=== PATIENT | female | born 1970 | race Hispanic/Latino ===

== ENCOUNTER 2021-01-23 09:16 | Emergency (ER) | payer SELFPAY ==
[2021-01-23 09:58] LABS: #Basophils 0.1 thou/uL (0.0-0.2); #Eosinphils 0.4 thou/uL (0.0-0.7); #Lymphocytes 1.9 thou/uL (1.20-3.40); #Monocytes 0.5 thou/uL (0.11-0.59); #Neutrophils 6.4 thou/uL (1.40-6.50); %Basophils 0.8 % (0.0-1.0); %Eosinophils 4.5 % (0.0-10.0); %Lymphocytes 20.1 % (21.0-51.0); %Monocytes 5.7 % (0.0-10.0); %Neutrophils 68.9 % (42.0-75.0); Hemoglobin 9.8 g/dL (12.0-16.0); Mean Corpuscular HGB CONC 31.9 g/dL (32.0-36.0); Mean Corpuscular Hemoglobin 26.7 pg (27.0-31.0); Mean Corpuscular Volume 83.7 fL (78.0-98.0); Mean Platelet Volume 10.5 fL (7.4-10.4); Platelet Count 215 thou/uL (130-400); RBC Distribution Width 13.8 % (11.5-14.5); Red Blood Cell (RBC) Count 3.68 mill/uL (4.20-5.40); White Blood Cell (WBC) Count 9.3 thou/uL (4.8-10.8)
[2021-01-23 10:12] LABS: PTT 32.5 sec (22.9-36.1)
[2021-01-23 10:18] LABS: ALT (SGPT) 17 U/L (8-55); AST (SGOT) 17 U/L (5-34); Albumin 3.9 g/dL (3.5-5.0); Alkaline Phosphatase 75 U/L (40-110); Anion Gap 15 mmol/L (10-20); BUN (Urea Nitrogen) 35 mg/dL (7.0-18.7); Bilirubin, Total 0.2 mg/dL (0.2-1.2); Calc. Creatinine Clearance 0 mL/min (70-130); Calcium 9.5 mg/dL (7.8-10.44); Carbon Dioxide 27 mmol/L (22-29); Chloride 104 mmol/L (98-107); Globulin 3.2 g/dL (2.4-3.5); Glucose 183 mg/dL (70-105); Potassium 4.7 mmol/L (3.5-5.1); Protein, Total 7.1 g/dL (6.0-8.3); Sodium 141 mmol/L (136-145)
== END 2021-01-23 15:50 | disposition home or self-care (01) ==
LOC: ERS 09:16
DX: H53.8 Other visual disturbances (principal); H54.62 Unqualified visual loss, left eye, normal vision right eye
CPT/HCPCS: 36415; 80053; 85025; 85610; 85730; 99283

== ENCOUNTER 2022-12-22 20:35 | Inpatient (IN) | payer SELFPAY ==
[2022-12-22 23:00] VITALS: BMI 34.0
[2022-12-22] MEDS ORDERED: Senokot S 8.6-50 MG TAB PO PRN (23:11)
[2022-12-22] MEDS ORDERED: Calcium Carbonate 500 MG ChewTAB PO PRN (23:11)
[2022-12-22] MEDS ORDERED: Acetaminophen 325 MG TAB PO PRN (23:11)
[2022-12-23] MEDS ORDERED: hydrALAZINE 20 MG/ML VIAL SLOW IVP SCH (00:15)
[2022-12-23 00:55] LABS: #Eosinphils 0.6 thou/uL (0.0-0.7); #Monocytes 0.8 thou/uL (0.11-0.59); #Neutrophils 7.5 thou/uL (1.40-6.50); %Basophils 0.4 % (0.0-1.0); %Lymphocytes 19.3 % (21.0-51.0); %Monocytes 7.5 % (0.0-10.0); %Neutrophils 67.4 % (42.0-75.0); Hematocrit 27.9 % (36.0-47.0); Hemoglobin 8.7 g/dL (12.0-16.0); Mean Corpuscular HGB CONC 31.2 g/dL (32.0-36.0); Mean Corpuscular Hemoglobin 26.2 pg (27.0-31.0); Mean Platelet Volume 12.4 fL (7.4-10.4); Platelet Count 210 10x3/uL (130-400); RBC Distribution Width 15.8 % (11.5-14.5); Red Blood Cell (RBC) Count 3.32 mill/uL (4.20-5.40); White Blood Cell (WBC) Count 11.2 10x3/uL (4.8-10.8)
[2022-12-23 01:21] LABS: ALT (SGPT) 21 U/L (8-55); AST (SGOT) 18 U/L (5-34); Albumin 3.5 g/dL (3.5-5.0); Alkaline Phosphatase 76 U/L (40-110); Anion Gap 13 mmol/L (10-20); BUN (Urea Nitrogen) 42 mg/dL (9.8-20.1); Bilirubin, Total 0.2 mg/dL (0.2-1.2); Calc. Creatinine Clearance 63 mL/min (70-130); Calcium 8.7 mg/dL (7.8-10.44); Carbon Dioxide 17 mmol/L (22-29); Chloride 114 mmol/L (98-107); Estimated GFR 44; Globulin 3.4 g/dL (2.4-3.5); Glucose 192 mg/dL (70-105); Protein, Total 6.9 g/dL (6.0-8.3); Sodium 139 mmol/L (136-145)
[2022-12-23] MEDS ORDERED: HumaLOG 300 UNITS/3 ML VIAL SC PRN (02:18)
[2022-12-23] MEDS ORDERED: Dextrose 50% Abboject 50 ML SYRINGE SLOW IVP PRN (02:18)
[2022-12-23] MEDS ORDERED: Glucagon 1 MG/ML KIT IM PRN (02:18)
[2022-12-23] MEDS ORDERED: Dextrose 5% in Water 1,000 ML IV PRN (02:18)
[2022-12-23] MEDS: HumaLOG 300 UNITS/3 ML VIAL SC PRN ×2 (05:44→12:24)
[2022-12-23] MEDS: Vancomycin 1.5 GRAM/300 ML BAG 1.5 GM in Premix Bag 1 BAG IVPB SCH (05:45)
[2022-12-23] MEDS: Gabapentin 300 MG CAP PO SCH (08:58)
[2022-12-23] MEDS: Famotidine 20 MG TAB PO SCH (08:58)
[2022-12-23] MEDS: Ferrous Sulfate 325 MG TAB PO SCH (08:58)
[2022-12-23] MEDS: Carvedilol 6.25 MG TAB PO SCH ×2 (08:58→20:21)
[2022-12-23] MEDS: Aspirin 81 mg Enteric Coated Tablet PO SCH (08:58)
[2022-12-23] MEDS: Lisinopril 20 MG TAB PO SCH (08:59)
[2022-12-23] MEDS: Insulin Glargine 30 UNITS/0.3 ML VIAL SC SCH ×2 (08:59→20:21)
[2022-12-23] MEDS: Loratadine 10 MG TAB PO SCH (08:59)
[2022-12-23] MEDS: HYDROcodone/Acetaminophen 10/325 mg Tablet PO PRN ×2 (08:59→13:19)
[2022-12-23] MEDS: metFORMIN 500 MG TAB PO SCH ×2 (08:59→20:21)
[2022-12-23] MEDS ORDERED: Furosemide 40 MG TAB PO SCH (09:00)
[2022-12-23] MEDS ORDERED: Labetalol HCl 100 MG/20 ML VIAL SLOW IVP PRN (12:45)
[2022-12-23] MEDS: Ondansetron ODT 4 MG TAB PO PRN (13:19)
[2022-12-23] MEDS ORDERED: Morphine 4 MG/ML VIAL SLOW IVP PRN (14:06)
[2022-12-23] MEDS ORDERED: Promethazine HCl 25 MG in Sodium Chloride 0.9% 50 ML IVPB PRN (14:06)
[2022-12-23 14:14] LABS: Troponin I Less than 0.010 ng/mL (< 0.028)
[2022-12-23] MEDS: Atorvastatin Calcium 20 MG TAB PO SCH (20:21)
[2022-12-24 05:26] LABS: Vancomycin, Trough 15.9 ug/mL
[2022-12-24] MEDS: Vancomycin 1.5 GRAM/300 ML BAG 1.5 GM in Premix Bag 1 BAG IVPB SCH (05:35)
[2022-12-24] MEDS: Carvedilol 6.25 MG TAB PO SCH ×2 (08:56→20:49)
[2022-12-24] MEDS: Famotidine 20 MG TAB PO SCH (08:56)
[2022-12-24] MEDS: Insulin Glargine 30 UNITS/0.3 ML VIAL SC SCH ×2 (08:57→20:51)
[2022-12-24] MEDS: metFORMIN 500 MG TAB PO SCH ×2 (08:58→20:47)
[2022-12-24] MEDS: Loratadine 10 MG TAB PO SCH (08:58)
[2022-12-24] MEDS: Lisinopril 20 MG TAB PO SCH (08:58)
[2022-12-24] MEDS: Aspirin 81 mg Enteric Coated Tablet PO SCH (08:58)
[2022-12-24] MEDS: Gabapentin 300 MG CAP PO SCH ×3 (08:59→20:48)
[2022-12-24] MEDS: Ferrous Sulfate 325 MG TAB PO SCH (08:59)
[2022-12-24] MEDS: Ondansetron ODT 4 MG TAB PO PRN (09:03)
[2022-12-24] MEDS: Atorvastatin Calcium 20 MG TAB PO SCH (20:49)
[2022-12-25] MEDS: Vancomycin 1.5 GRAM/300 ML BAG 1.5 GM in Premix Bag 1 BAG IVPB SCH (06:11)
[2022-12-25] MEDS: HYDROcodone/Acetaminophen 5/325 mg Tablet PO PRN ×2 (06:16→20:47)
[2022-12-25 06:36] LABS: #Basophils 0.1 thou/uL (0.0-0.2); #Eosinphils 0.5 thou/uL (0.0-0.7); #Monocytes 0.8 thou/uL (0.11-0.59); #Neutrophils 6.4 thou/uL (1.40-6.50); %Basophils 0.6 % (0.0-1.0); %Eosinophils 4.9 % (0.0-10.0); %Lymphocytes 23.4 % (21.0-51.0); %Monocytes 7.8 % (0.0-10.0); %Neutrophils 62.8 % (42.0-75.0); Hematocrit 27.9 % (36.0-47.0); Hemoglobin 8.6 g/dL (12.0-16.0); Mean Corpuscular HGB CONC 30.8 g/dL (32.0-36.0); Mean Corpuscular Hemoglobin 26.2 pg (27.0-31.0); Mean Corpuscular Volume 85.1 fl (78.0-98.0); Mean Platelet Volume 12.4 fL (7.4-10.4); Platelet Count 255 10x3/uL (130-400); RBC Distribution Width 15.9 % (11.5-14.5); Red Blood Cell (RBC) Count 3.28 mill/uL (4.20-5.40); White Blood Cell (WBC) Count 10.2 10x3/uL (4.8-10.8)
[2022-12-25 07:05] LABS: Anion Gap 13 mmol/L (10-20); BUN (Urea Nitrogen) 59 mg/dL (9.8-20.1); Calc. Creatinine Clearance 45 mL/min (70-130); Calcium 9.1 mg/dL (7.8-10.44); Carbon Dioxide 20 mmol/L (22-29); Chloride 114 mmol/L (98-107); Estimated GFR 29; Glucose 131 mg/dL (70-105); Potassium 5.2 mmol/L (3.5-5.1); Sodium 142 mmol/L (136-145)
[2022-12-25] MEDS: Lisinopril 20 MG TAB PO SCH (09:17)
[2022-12-25] MEDS: metFORMIN 500 MG TAB PO SCH ×2 (09:17→20:48)
[2022-12-25] MEDS: Carvedilol 6.25 MG TAB PO SCH ×2 (09:18→20:47)
[2022-12-25] MEDS: Aspirin 81 mg Enteric Coated Tablet PO SCH (09:19)
[2022-12-25] MEDS: Ferrous Sulfate 325 MG TAB PO SCH (09:19)
[2022-12-25] MEDS: Loratadine 10 MG TAB PO SCH (09:19)
[2022-12-25] MEDS: Famotidine 20 MG TAB PO SCH (09:19)
[2022-12-25] MEDS: Insulin Glargine 30 UNITS/0.3 ML VIAL SC SCH ×2 (09:19→20:45)
[2022-12-25] MEDS: Sodium Chloride 0.9% 1,000 ML IV SCH ×2 (11:49→23:08)
[2022-12-25] MEDS: Atorvastatin Calcium 20 MG TAB PO SCH (20:47)
[2022-12-25] MEDS: Gabapentin 300 MG CAP PO SCH (20:47)
[2022-12-26 05:42] LABS: Vancomycin, Trough 16.6 ug/mL
[2022-12-26] MEDS: Vancomycin 1.5 GRAM/300 ML BAG 1.5 GM in Premix Bag 1 BAG IVPB SCH (06:17)
[2022-12-26] MEDS: HYDROcodone/Acetaminophen 5/325 mg Tablet PO PRN ×2 (06:23→10:22)
[2022-12-26 08:29] VITALS: BP 146/75; TEMP 98.6
[2022-12-26 09:50] LABS: Anion Gap 11 mmol/L (10-20); BUN (Urea Nitrogen) 45 mg/dL (9.8-20.1); Calc. Creatinine Clearance 70 mL/min (70-130); Carbon Dioxide 21 mmol/L (22-29); Chloride 115 mmol/L (98-107); Estimated GFR 49; Glucose 154 mg/dL (70-105); Potassium 5.4 mmol/L (3.5-5.1); Sodium 142 mmol/L (136-145)
[2022-12-26] MEDS: Aspirin 81 mg Enteric Coated Tablet PO SCH (10:22)
[2022-12-26] MEDS: Insulin Glargine 30 UNITS/0.3 ML VIAL SC SCH (10:22)
[2022-12-26] MEDS: Famotidine 20 MG TAB PO SCH (10:23)
[2022-12-26] MEDS: Carvedilol 6.25 MG TAB PO SCH (10:23)
[2022-12-26] MEDS: Ferrous Sulfate 325 MG TAB PO SCH (10:23)
[2022-12-26] MEDS: Loratadine 10 MG TAB PO SCH (10:24)
[2022-12-26] MEDS: metFORMIN 500 MG TAB PO SCH (10:24)
[2022-12-26] MEDS: Ondansetron ODT 4 MG TAB PO PRN (10:26)
[2022-12-26] MEDS: Sodium Chloride 0.9% 1,000 ML IV SCH (12:43)
[2022-12-26] MEDS ORDERED: Doxycycline 100 MG CAP PO SCH (21:00)
== END 2022-12-26 14:30 | disposition home or self-care (01) | DRG 603 ==
LOC: T4-B 22:07
PROVIDERS: ADMIT Student in an Organized Health Care Education/Training Program; ATTEND Emergency Medicine
DX: L03.116 Cellulitis of left lower limb (principal); N17.9 Acute kidney failure, unspecified; I10 Essential (primary) hypertension; E11.9 Type 2 diabetes mellitus without complications; E78.5 Hyperlipidemia, unspecified; Z79.82 Long term (current) use of aspirin; Z79.4 Long term (current) use of insulin; Z79.899 Other long term (current) drug therapy; Z79.84 Long term (current) use of oral hypoglycemic drugs; L02.416 Cutaneous abscess of left lower limb
CPT/HCPCS: 36415; 36416; 71045; 80048; 80202; 84484; 85025; 93005; 93010; J1650; J1815; J3370; J7050; Q0162